=== PATIENT | male | born 1945 | race Caucasian/White ===

== ENCOUNTER 2022-09-24 12:30 | Emergency (ER) | payer MEDICARE ==
[2022-09-24] MEDS ORDERED: BYST10TA2 PO (12:52)
[2022-09-24] MEDS ORDERED: ONGL1TAB9 PO (12:52)
[2022-09-24] MEDS ORDERED: HYDR12.55 PO (12:52)
[2022-09-24] MEDS ORDERED: NIFE20CA PO (12:52)
[2022-09-24] MEDS ORDERED: ASPI-129 PO (12:52)
[2022-09-24] MEDS ORDERED: LISI20TA33 PO (12:52)
[2022-09-24] MEDS ORDERED: JARD1TAB3 PO (12:52)
[2022-09-24] MEDS ORDERED: GLYB5TAB6 PO (12:52)
[2022-09-24 13:38] LABS: BASO % 0.4 % (0.0-1.0); EOS # 0.3 10^3/uL (0.0-0.5); EOS % 2.8 % (0.0-3.0); HEMATOCRIT 50.3 % (42.0-52.0); LYMPH # 1.3 10^3/uL (1.5-5.0); LYMPH % 13.8 % (24.0-44.0); MEAN CORPUSCULAR HEMOGLOBIN 29.5 pg (27.0-33.0); MEAN CORPUSCULAR HGB CONC 33.8 g/dl (32.0-36.5); MEAN CORPUSCULAR VOLUME 87.2 fl (80.0-96.0); MONO # 0.7 10^3/uL (0.0-0.8); MONO % 7.6 % (2.0-8.0); NEUTROPHILS # 6.8 10^3/uL (1.5-8.5); PLATELET COUNT, AUTOMATED 176 10^3/uL (150-450); RED BLOOD COUNT 5.77 10^6/uL (4.30-6.10); WHITE BLOOD COUNT 9.1 10^3/uL (4.0-10.0)
[2022-09-24 14:07] LABS: CALCIUM LEVEL 9.7 MG/DL (8.3-10.6); CREATININE FOR GFR 1.37 MG/DL (0.70-1.30); GLOMERULAR FILTRATION RATE 54.1 (>42); MAGNESIUM LEVEL 1.8 MG/DL (1.8-2.4); POTASSIUM SERUM 3.5 MMOL/L (3.5-5.1)
[2022-09-24 14:09] LABS: FREE T4 1.3 NG/DL (0.89-1.76); THYROID STIMULATING HORMONE 1.167 uIU/ML (0.55-4.78)
[2022-09-24 15:48] VITALS: BP 160/85; TEMP 98.4; O2SAT 100
== END 2022-09-24 15:50 | disposition home or self-care (01) ==
LOC: M ED 12:30 → EDBD 12:30 → M ED 15:50
DX: R26.81 Unsteadiness on feet (principal); E11.9 Type 2 diabetes mellitus without complications; I10 Essential (primary) hypertension; F39 Unspecified mood [affective] disorder; Z86.73 Personal history of transient ischemic attack (TIA), and cerebral infarction without residual deficits; Z88.0 Allergy status to penicillin; Z88.8 Allergy status to other drugs, medicaments and biological substances; Z79.899 Other long term (current) drug therapy; Z79.82 Long term (current) use of aspirin